=== PATIENT | female | born 1935 | race Caucasian/White ===

== ENCOUNTER 2017-02-13 09:40 | Day surgery (SDC) | payer MEDICARE, OTHER ==
[~2017-02-13] VITALS: Ht 165.1 cm; Wt 73.5 kg
[~2017-02-13 09:40] MED LIST: ADV250INH INH; ALBU17IN INH; ALLE60TA69 PO; ASPI1TAB PO; CALCTAB68 PO; EYECAP PO; FENO35TA PO; FISH306C PO; HAIR1TAB2 PO; LANS30CA PO; LOSA100T5 PO; LUTECAP2 PO; MILKSUS5 PO; OFLOXACIN 0.3 % (OCUFLOX) OPTH SOL 5ML OS ONE; PARO20TA3 PO; PERCOCET PO; PHENYLEPHRINE 2.5% OPHTH SOL 2ML OS ONE; PROL60SO SC; PROPARACAINE 0.5% OPHTH SOL 15ML OS ONE; SENO8.6T10 PO; SING10TA32 PO; TROPICAMIDE 1% OPHTH SOLN 2ML OS ONE; TYLE325T5 PO; VITA1CAP2 PO; VITA500046 PO; ZANT1TAB PO
[2017-02-13] MEDS ORDERED: LIDOCAINE 1% MDV 20ML VIAL SQ PRN (10:00)
[2017-02-13] MEDS ORDERED: LOSA100T5 PO (11:00)
[2017-02-13] MEDS ORDERED: BALANCED SALT IRRIGATION SOLUTION 500ML BAG (FOR OR EYE MACHINE) As Ordered ONE (11:22)
[2017-02-13] MEDS ORDERED: CEFUROXIME 1MG/0.1ML INTRACAMERAL INJ As Ordered ONE (11:22)
[2017-02-13] MEDS ORDERED: LIDOCAINE 0.75%/EPINEPHRINE 0.025% IN BSS 1ML SYR INTRACAMERAL (OR ONLY) As Ordered ONE (11:22)
[2017-02-13] MEDS ORDERED: POVIDONE-IODINE 5% OPHTH PREP SOL 30ML As Ordered ONE (11:22)
[2017-02-13] MEDS ORDERED: ACETYLCHOLINE OPHTH SOLN 1% 2ML (MIOCHOL-E) As Ordered ONE (11:22)
[2017-02-13] MEDS ORDERED: DUOVISC (0.50ML VISCOAT/0.55ML PROVISC) OPHTH KIT As Ordered ONE (11:22)
[2017-02-13] MEDS ORDERED: MIDAZOLAM INJ 2 MG/2 ML VIAL (J2250) As Ordered ONE (11:41)
[2017-02-13] MEDS ORDERED: fentaNYL 100 MCG/2 ML INJECTION (J3010) As Ordered ONE (11:42)
[2017-02-13 12:55] VITALS: BP 142/85
--- NOTE | 2017-02-15 10:42 | RO ---
DATE OF PROCEDURE: 02/13/2017 PREOPERATIVE DIAGNOSIS: Visually significant nuclear sclerotic cataract left eye. POSTOPERATIVE DIAGNOSIS: Visually significant nuclear sclerotic cataract left eye. PROCEDURE: Cataract extraction with use of phacoemulsification and placement of intraocular lens, AU00T0, 24.5, left eye. SURGEON: Adama Zapata DO HEEL PRICKER: ANESTHESIA: Local with monitored anesthesia care (MAC). COMPLICATIONS: None. POSTOPERATIVE CONDITION: Stable. INDICATION FOR SURGERY: Blurred vision left eye affecting patient's activities of daily living. DESCRIPTION OF PROCEDURE: The patient was seen in the preoperative area and properly identified. The correct operative eye was identified and marked. Attention was turned to that eye. The patient received topical antibiotics in the preoperative area. The patient then received topical dilating drops consisting of tropicamide and phenylephrine. The patient was then transferred to the operating room. The correct side was re-identified. The patient received topical anesthetics and antibiotics on the surface of the eye. The eye was prepped and draped in a sterile fashion. The upper and lower eyelids were isolated with Tegaderm tape, and the lids were held open with an adjustable speculum. Using a sideport blade, a paracentesis incision was made. Intraocular preservative-free lidocaine was then injected into the anterior chamber. Viscoelastic was then injected into the anterior chamber through the paracentesis. Using a 2.4 mm sharp-tipped keratome, the anterior chamber was entered via a temporal clear corneal incision. A continuous curvilinear capsulorrhexis was created with the aid of a 26-gauge cystotome and Utrata forceps. Hydrodissection was performed with balanced salt solution (BSS) on a blunt cannula until the nucleus was freely mobile. The crystalline lens was phacoemulsified and aspirated. Additional cohesive viscoelastic was placed into the capsular bag to deepen it. A AU00T0, 24.5 lens was placed into the capsular bag and confirmed by visualizing the continuous curvilinear capsulorrhexis. Additional irrigation and aspiration was used to remove cortical material and remaining viscoelastic. The clear corneal incision was hydrated with BSS on a blunt cannula. The lens was well positioned. The incisions were then tested for leaks and found to be negative. The eye was then palpated for appropriate pressure and adjusted accordingly with BSS. The eyelid speculum was carefully removed. A shield was placed. The patient tolerated the procedure well and was discharged to the recovery unit in a stable condition. MTDD
== END 2017-02-13 13:05 | disposition home or self-care (01) ==
LOC: M SDC 09:40
PROVIDERS: ATTEND Ophthalmology
DX: H25.12 Age-related nuclear cataract, left eye (principal); J45.909 Unspecified asthma, uncomplicated; Z79.82 Long term (current) use of aspirin; Z79.899 Other long term (current) drug therapy; Z79.51 Long term (current) use of inhaled steroids; Z87.891 Personal history of nicotine dependence
CPT/HCPCS: 66984; J2250; J3010; V2632

== ENCOUNTER 2017-03-06 06:32 | Day surgery (SDC) | payer MEDICARE, OTHER ==
[~2017-03-06] VITALS: Ht 167.6 cm; Wt 75.0 kg
[~2017-03-06 06:32] MED LIST changes: -OFLOXACIN 0.3 % (OCUFLOX) OPTH SOL 5ML OS ONE; -PHENYLEPHRINE 2.5% OPHTH SOL 2ML OS ONE; -PROPARACAINE 0.5% OPHTH SOL 15ML OS ONE; -TROPICAMIDE 1% OPHTH SOLN 2ML OS ONE
[2017-03-06] MEDS ORDERED: SLF 3 ML SYR IV PRN (06:45)
[2017-03-06] MEDS ORDERED: OFLOXACIN 0.3 % (OCUFLOX) OPTH SOL 5ML OD ONE (07:00)
[2017-03-06] MEDS ORDERED: PHENYLEPHRINE 2.5% OPHTH SOL 2ML OD ONE (07:00)
[2017-03-06] MEDS ORDERED: PROPARACAINE 0.5% OPHTH SOL 15ML OD ONE (07:00)
[2017-03-06] MEDS ORDERED: TROPICAMIDE 1% OPHTH SOLN 2ML OD ONE (07:00)
[2017-03-06] MEDS ORDERED: LIDOCAINE 3.5 % 1ML OPHTH TOPICAL GEL OU ONE (07:00)
[2017-03-06] MEDS ORDERED: POVIDONE-IODINE 5% OPHTH PREP SOL 30ML As Ordered ONE ×2 (07:35→08:25)
[2017-03-06] MEDS ORDERED: ACETYLCHOLINE OPHTH SOLN 1% 2ML (MIOCHOL-E) As Ordered ONE (07:35)
[2017-03-06] MEDS ORDERED: BALANCED SALT IRRIGATION SOLUTION 500ML BAG (FOR OR EYE MACHINE) As Ordered ONE (07:35)
[2017-03-06] MEDS ORDERED: DUOVISC (0.50ML VISCOAT/0.55ML PROVISC) OPHTH KIT As Ordered ONE (07:36)
[2017-03-06] MEDS ORDERED: LIDOCAINE 0.75%/EPINEPHRINE 0.025% IN BSS 1ML SYR INTRACAMERAL (OR ONLY) As Ordered ONE (07:36)
[2017-03-06] MEDS ORDERED: CEFUROXIME 1MG/0.1ML INTRACAMERAL INJ As Ordered ONE (07:36)
[2017-03-06] MEDS ORDERED: fentaNYL 100 MCG/2 ML INJECTION (J3010) As Ordered ONE (08:00)
[2017-03-06] MEDS ORDERED: MIDAZOLAM INJ 2 MG/2 ML VIAL (J2250) As Ordered ONE (08:00)
[2017-03-06 08:55] VITALS: BP 141/58
[2017-03-06] MEDS ORDERED: SLF 3 ML SYR IV SCH (14:00)
--- NOTE | 2017-03-07 13:13 | RO ---
DATE OF PROCEDURE: 03/06/2017 PREOPERATIVE DIAGNOSIS: Visually significant nuclear sclerotic cataract right eye. POSTOPERATIVE DIAGNOSIS: Visually significant nuclear sclerotic cataract right eye. PROCEDURE: Cataract extraction with use of phacoemulsification and placement of intraocular lens, AU00T0, 24.5 diopter, right eye. SURGEON: Adama Zapata DO URINALYSIS TECHNICIAN: ANESTHESIA: Local with monitored anesthesia care (MAC). COMPLICATIONS: None. POSTOPERATIVE CONDITION: Stable. INDICATION FOR SURGERY: Blurred vision right eye affecting patient's activities of daily living. DESCRIPTION OF PROCEDURE: The patient was seen in the preoperative area and properly identified. The correct operative eye was identified and marked. Attention was turned to that eye. The patient received topical antibiotics in the preoperative area. The patient then received topical dilating drops consisting of tropicamide and phenylephrine. The patient was then transferred to the operating room. The correct side was re-identified. The patient received topical anesthetics and antibiotics on the surface of the eye. The eye was prepped and draped in a sterile fashion. The upper and lower eyelids were isolated with Tegaderm tape, and the lids were held open with an adjustable speculum. Using a sideport blade, a paracentesis incision was made. Intraocular preservative-free lidocaine was then injected into the anterior chamber. Viscoelastic was then injected into the anterior chamber through the paracentesis. Using a 2.65 mm sharp-tipped keratome, the anterior chamber was entered via a temporal clear corneal incision. A continuous curvilinear capsulorrhexis was created with the aid of a 26-gauge cystotome and Utrata forceps. Hydrodissection was performed with balanced salt solution (BSS) on a blunt cannula until the nucleus was freely mobile. The crystalline lens was phacoemulsified and aspirated. Additional cohesive viscoelastic was placed into the capsular bag to deepen it. A AU00T0, 24.5 diopter lens was placed into the capsular bag and confirmed by visualizing the continuous curvilinear capsulorrhexis. Additional irrigation and aspiration was used to remove cortical material and remaining viscoelastic. The clear corneal incision was hydrated with BSS on a blunt cannula. The lens was well positioned. The incisions were then tested for leaks and found to be negative. The eye was then palpated for appropriate pressure and adjusted accordingly with BSS. The eyelid speculum was carefully removed. TobraDex ointment was placed in the eye. An eye patch and shield were then secured over the eye. The patient tolerated the procedure well and was discharged to the recovery unit in a stable condition.
== END 2017-03-06 09:00 | disposition home or self-care (01) ==
LOC: M SDC 06:32
PROVIDERS: ATTEND Ophthalmology
DX: H25.11 Age-related nuclear cataract, right eye (principal); I10 Essential (primary) hypertension; J45.20 Mild intermittent asthma, uncomplicated; K21.9 Gastro-esophageal reflux disease without esophagitis; M19.041 Primary osteoarthritis, right hand; M19.042 Primary osteoarthritis, left hand; K59.00 Constipation, unspecified; M81.0 Age-related osteoporosis without current pathological fracture; M54.9 Dorsalgia, unspecified; Z88.8 Allergy status to other drugs, medicaments and biological substances; Z88.1 Allergy status to other antibiotic agents; Z79.899 Other long term (current) drug therapy; Z79.82 Long term (current) use of aspirin; Z79.51 Long term (current) use of inhaled steroids
CPT/HCPCS: 66984; J2250; J3010; V2632

== ENCOUNTER → 2023-01-22 | Outpatient (REF) | payer MEDICARE, OTHER ==
[~2023-01-22] MED LIST changes: -ASPI1TAB PO; +ASPI81TA26 PO; +MONT-5 PO; -SING10TA32 PO; +VITA-183 PO; -VITA1CAP2 PO; +ZANT150T15 PO; -ZANT1TAB PO
== END ==
LOC: M LAB REF 15:14
PROVIDERS: ATTEND Internal Medicine Pulmonary Disease
DX: J47.9 Bronchiectasis, uncomplicated (principal)

== ENCOUNTER 2023-06-27 11:17 | Inpatient (IN) | payer MEDICARE, OTHER ==
[~2023-06-27] VITALS: Ht 160 cm; Wt 66.7 kg
[2023-06-27 18:30] VITALS: BP 119/57; TEMP 97.7; O2SAT 98
[2023-06-27] MEDS ORDERED: MIRALAX *UNIT DOSE* 17GM PACKET PO PRN (19:10)
[2023-06-27] MEDS ORDERED: APAP325T4 PO (20:11)
[2023-06-27] MEDS ORDERED: FURO20TA2 PO (20:16)
[2023-06-27] MEDS ORDERED: PREG25CA3 PO (20:16)
[2023-06-27] MEDS ORDERED: ELIQ5TAB PO (20:16)
[2023-06-27] MEDS ORDERED: DULO1CAP6 PO (20:16)
[2023-06-27] MEDS ORDERED: SYMB16INH INH (20:22)
[2023-06-27] MEDS ORDERED: AMOX875T2 PO (20:22)
[2023-06-27] MEDS ORDERED: FLON27.5 NARES (20:22)
[2023-06-27] MEDS ORDERED: PREG50CA PO (20:22)
[2023-06-27] MEDS ORDERED: ALBU2.5V10 INH (20:22)
[2023-06-27] MEDS ORDERED: DILT90TA PO (20:22)
[2023-06-27] MEDS ORDERED: HOME MED LIST COMPLETE! XX SCH (20:25)
[2023-06-27 20:48] VITALS: BP 128/64; TEMP 100; O2SAT 94
[2023-06-27] MEDS ORDERED: PREGABALIN 25 MG CAP (LYRICA) PO SCH (21:00)
[2023-06-27] MEDS: ALBUTEROL SULFATE 2.5MG/0.5ML INH NEB SOLN NEB SCH (21:42)
[2023-06-27] MEDS: SYMBICORT 160/4.5MCG INHALER 6GM INH SCH (21:43)
[2023-06-27] MEDS: FLUTICASONE PROP 0.05% NASAL SPRAY 16 GM (FLONASE) NARES SCH (22:16)
[2023-06-27] MEDS: AUGMENTIN 875 MG TAB PO SCH (22:16)
[2023-06-27] MEDS: APIXABAN 5 MG TAB (ELIQUIS) PO SCH (22:16)
[2023-06-28] MEDS ORDERED: ACETAMINOPHEN 325 MG TAB PO ONE
[2023-06-28 00:04] VITALS: BP 127/59; TEMP 100.5; O2SAT 95
[2023-06-28] MEDS: ACETAMINOPHEN TAB 650MG DOSE (2X325MG) PO PRN (00:31)
[2023-06-28] MEDS: dilTIAZem 30 MG TAB PO SCH (00:49)
[2023-06-28 01:58] LABS: BASO % 0.2 % (0.0-1.0); EOS # 0.3 10^3/uL (0.0-0.5); EOS % 2.6 % (0.0-3.0); HEMATOCRIT 26.1 % (36.0-47.0); HEMOGLOBIN 8.1 g/dl (12.0-15.5); LYMPH # 1.2 10^3/uL (1.5-5.0); LYMPH % 9.7 % (24.0-44.0); MEAN CORPUSCULAR HEMOGLOBIN 22.2 pg (27.0-33.0); MEAN CORPUSCULAR VOLUME 71.5 fl (80.0-96.0); MONO # 1.2 10^3/uL (0.0-0.8); MONO % 9.7 % (2.0-8.0); NEUTROPHILS # 9.6 10^3/uL (1.5-8.5); NEUTROPHILS % 76.5 % (36.0-66.0); PLATELET COUNT, AUTOMATED 360 10^3/uL (150-450); RED BLOOD COUNT 3.65 10^6/uL (4.00-5.40); WHITE BLOOD COUNT 12.5 10^3/uL (4.0-10.0)
[2023-06-28 02:21] LABS: MAGNESIUM LEVEL 1.7 MG/DL (1.8-2.4)
[2023-06-28 03:17] LABS: PROCALCITONIN 0.38 ng/ml
[2023-06-28 04:33] VITALS: BP 117/54; TEMP 99.5; O2SAT 95
[2023-06-28 06:22] LABS: HEMATOCRIT 26.8 % (36.0-47.0); HEMOGLOBIN 8.2 g/dl (12.0-15.5); MEAN CORPUSCULAR HEMOGLOBIN 21.9 pg (27.0-33.0); MEAN CORPUSCULAR HGB CONC 30.6 g/dl (32.0-36.5); MEAN CORPUSCULAR VOLUME 71.5 fl (80.0-96.0); PLATELET COUNT, AUTOMATED 315 10^3/uL (150-450); RED BLOOD COUNT 3.75 10^6/uL (4.00-5.40); WHITE BLOOD COUNT 11.6 10^3/uL (4.0-10.0)
[2023-06-28 06:51] LABS: CALCIUM LEVEL 8.5 MG/DL (8.3-10.6); CREATININE FOR GFR 1.32 MG/DL (0.55-1.30); GLOMERULAR FILTRATION RATE 40.5 (>32); POTASSIUM SERUM 3.9 MMOL/L (3.5-5.1)
[2023-06-28 08:14] LABS: HEMATOCRIT 27.2 % (36.0-47.0); HEMOGLOBIN 8.2 g/dl (12.0-15.5); MEAN CORPUSCULAR HEMOGLOBIN 21.5 pg (27.0-33.0); MEAN CORPUSCULAR HGB CONC 30.1 g/dl (32.0-36.5); MEAN CORPUSCULAR VOLUME 71.4 fl (80.0-96.0); PLATELET COUNT, AUTOMATED 349 10^3/uL (150-450); RED BLOOD COUNT 3.81 10^6/uL (4.00-5.40); WHITE BLOOD COUNT 11.5 10^3/uL (4.0-10.0)
[2023-06-28 08:26] LABS: INR 1.66; PROTHROMBIN TIME 19.1 SECONDS (12.5-14.5)
[2023-06-28 08:27] VITALS: BP 123/58; TEMP 98.3; O2SAT 89
[2023-06-28 08:48] LABS: ALBUMIN 2.2 G/DL (3.2-5.2); BILIRUBIN,DIRECT 0.2 MG/DL (<0.4); BILIRUBIN,TOTAL 0.4 MG/DL (0.3-1.2); TOTAL PROTEIN 5.4 G/DL (5.7-8.2)
[2023-06-28] MEDS ORDERED: DULoxetine 30MG CAPSULE (CYMBALTA) PO SCH (09:00)
[2023-06-28] MEDS: FUROSEMIDE 20 MG TAB PO SCH (10:03)
[2023-06-28] MEDS: PANTOPRAZOLE 40MG TAB (PROTONIX) PO SCH (10:03)
[2023-06-28] MEDS ORDERED: PIPERACILLIN/TAZOBACTAM SOD 3.375 GM in D5W MINI-BAG PLUS 50 ML IV SCH (12:00)
[2023-06-28 12:56] VITALS: BP 119/60; TEMP 98.4; O2SAT 90
[2023-06-28] MEDS: LEVALBUTEROL 1.25MG 0.5ML CONCENTRATE NEB INH SCH (12:59)
[2023-06-28] MEDS: PIPERACILLIN/TAZOBACTAM SOD 3.375 GM in D5W MINI-BAG PLUS 50 ML IV SCH (16:58)
[2023-06-28 17:08] VITALS: BP 121/64; TEMP 98.6; O2SAT 90
[2023-06-28] MEDS: MAGNESIUM OXIDE 400MG TAB (MAG-OX) PO ONE (18:47)
[2023-06-28 20:00] VITALS: BP 117/56; TEMP 98.4; O2SAT 97
[2023-06-28] MEDS: guaiFENesin ER TABLET 600 MG TAB PO SCH (20:44)
[2023-06-28] MEDS: PREGABALIN 25 MG CAP (LYRICA) PO SCH (20:44)
[2023-06-29] VITALS (8 sets, daily range): BP systolic 103–123; BP diastolic 53–72; TEMP 97.4–98.4; O2SAT 87–98
[2023-06-29] MEDS: LEVALBUTEROL 1.25MG 0.5ML CONCENTRATE NEB NEB PRN (02:12)
[2023-06-29 06:44] LABS: HEMATOCRIT 26.2 % (36.0-47.0); HEMOGLOBIN 7.9 g/dl (12.0-15.5); MEAN CORPUSCULAR HGB CONC 30.2 g/dl (32.0-36.5); PLATELET COUNT, AUTOMATED 320 10^3/uL (150-450); RED BLOOD COUNT 3.59 10^6/uL (4.00-5.40); WHITE BLOOD COUNT 12.1 10^3/uL (4.0-10.0)
[2023-06-29 07:10] LABS: ALBUMIN 2.1 G/DL (3.2-5.2); BILIRUBIN,TOTAL 0.5 MG/DL (0.3-1.2); CALCIUM LEVEL 8.6 MG/DL (8.3-10.6); CREATININE FOR GFR 1.46 MG/DL (0.55-1.30); GLOMERULAR FILTRATION RATE 36.1 (>32); POTASSIUM SERUM 4.2 MMOL/L (3.5-5.1); TOTAL PROTEIN 5.2 G/DL (5.7-8.2)
[2023-06-29] MEDS: DULoxetine 30MG CAPSULE (CYMBALTA) PO SCH (09:58)
[2023-06-29] MEDS: RAMELTEON 8 MG TAB (ROZEREM) PO PRN (20:17)
[2023-06-30 06:00] VITALS: BP 122/59; TEMP 97.2; O2SAT 93
[2023-06-30 07:20] LABS: HEMATOCRIT 26.3 % (36.0-47.0); HEMOGLOBIN 7.9 g/dl (12.0-15.5); MEAN CORPUSCULAR HEMOGLOBIN 21.8 pg (27.0-33.0); MEAN CORPUSCULAR VOLUME 72.7 fl (80.0-96.0); PLATELET COUNT, AUTOMATED 384 10^3/uL (150-450); RED BLOOD COUNT 3.62 10^6/uL (4.00-5.40); WHITE BLOOD COUNT 13.3 10^3/uL (4.0-10.0)
[2023-06-30 07:51] LABS: BILIRUBIN,TOTAL 0.4 MG/DL (0.3-1.2); CALCIUM LEVEL 8.4 MG/DL (8.3-10.6); CREATININE FOR GFR 1.34 MG/DL (0.55-1.30); GLOMERULAR FILTRATION RATE 39.8 (>32); POTASSIUM SERUM 4.3 MMOL/L (3.5-5.1); TOTAL PROTEIN 5.4 G/DL (5.7-8.2)
[2023-06-30 11:24] LABS: HEMATOCRIT 28.5 % (36.0-47.0); HEMOGLOBIN 8.5 g/dl (12.0-15.5); MEAN CORPUSCULAR HGB CONC 29.8 g/dl (32.0-36.5); MEAN CORPUSCULAR VOLUME 73.6 fl (80.0-96.0); PLATELET COUNT, AUTOMATED 401 10^3/uL (150-450); RED BLOOD COUNT 3.87 10^6/uL (4.00-5.40); WHITE BLOOD COUNT 13.2 10^3/uL (4.0-10.0)
[2023-06-30 11:51] LABS: CALCIUM LEVEL 8.8 MG/DL (8.3-10.6); CREATININE FOR GFR 1.42 MG/DL (0.55-1.30); GLOMERULAR FILTRATION RATE 37.3 (>32); MAGNESIUM LEVEL 1.5 MG/DL (1.8-2.4); POTASSIUM SERUM 3.8 MMOL/L (3.5-5.1)
[2023-06-30 14:00] VITALS: BP 122/54; TEMP 98.1; O2SAT 96
[2023-06-30] MEDS: MAG SULF 1GM/100ML (MAG RUN) 1 GM in IV 1 EA IV ONE (14:07)
[2023-06-30] MEDS: LACTOBACILLUS ACIDOPHILUS CAP (BACID) PO SCH (17:39)
[2023-06-30 20:00] VITALS: BP 119/90; TEMP 97.8; O2SAT 93
[2023-07-01 06:00] VITALS: BP 118/53; TEMP 98.6; O2SAT 95
[2023-07-01 07:44] LABS: HEMATOCRIT 26.9 % (36.0-47.0); HEMOGLOBIN 7.9 g/dl (12.0-15.5); MEAN CORPUSCULAR HEMOGLOBIN 21.8 pg (27.0-33.0); MEAN CORPUSCULAR HGB CONC 29.4 g/dl (32.0-36.5); MEAN CORPUSCULAR VOLUME 74.1 fl (80.0-96.0); PLATELET COUNT, AUTOMATED 452 10^3/uL (150-450); RED BLOOD COUNT 3.63 10^6/uL (4.00-5.40); WHITE BLOOD COUNT 15.7 10^3/uL (4.0-10.0)
[2023-07-01 08:10] LABS: PERCENT SATURATION 3.1 % (13.2-45.0)
[2023-07-01 08:22] LABS: ALBUMIN 2.1 G/DL (3.2-5.2); BILIRUBIN,TOTAL 0.4 MG/DL (0.3-1.2); CALCIUM LEVEL 8.2 MG/DL (8.3-10.6); CREATININE FOR GFR 1.37 MG/DL (0.55-1.30); FOLATE 10.67 NG/ML (>5.4); GLOMERULAR FILTRATION RATE 38.8 (>32); MAGNESIUM LEVEL 1.8 MG/DL (1.8-2.4); POTASSIUM SERUM 4.7 MMOL/L (3.5-5.1); TOTAL PROTEIN 5.5 G/DL (5.7-8.2)
[2023-07-01 14:00] VITALS: BP 138/66; TEMP 97.5; O2SAT 98
[2023-07-01] MEDS: FERROUS SULFATE 325MG TAB PO SCH (17:09)
[2023-07-01 20:00] VITALS: BP 128/69; TEMP 98.5; O2SAT 98
[2023-07-01] MEDS: DOXYCYCLINE HYCLATE 100MG TABLET PO SCH (20:32)
[2023-07-02 06:20] VITALS: BP 106/51; TEMP 97.8; O2SAT 94
[2023-07-02 07:27] LABS: HEMATOCRIT 26.5 % (36.0-47.0); HEMOGLOBIN 7.8 g/dl (12.0-15.5); MEAN CORPUSCULAR HEMOGLOBIN 21.6 pg (27.0-33.0); MEAN CORPUSCULAR HGB CONC 29.4 g/dl (32.0-36.5); MEAN CORPUSCULAR VOLUME 73.4 fl (80.0-96.0); PLATELET COUNT, AUTOMATED 490 10^3/uL (150-450); RED BLOOD COUNT 3.61 10^6/uL (4.00-5.40); WHITE BLOOD COUNT 12.3 10^3/uL (4.0-10.0)
[2023-07-02 07:57] LABS: ALBUMIN 2.2 G/DL (3.2-5.2); BILIRUBIN,TOTAL 0.4 MG/DL (0.3-1.2); CALCIUM LEVEL 8.9 MG/DL (8.3-10.6); CREATININE FOR GFR 1.35 MG/DL (0.55-1.30); GLOMERULAR FILTRATION RATE 39.5 (>32); MAGNESIUM LEVEL 1.5 MG/DL (1.8-2.4); POTASSIUM SERUM 4.4 MMOL/L (3.5-5.1); TOTAL PROTEIN 5.6 G/DL (5.7-8.2)
[2023-07-02] MEDS ORDERED: MEROPENEM INJ 1 GM in IV 1 EA IV SCH (08:15)
[2023-07-02 09:02] LABS: PROCALCITONIN 0.17 ng/ml
[2023-07-02] MEDS: MAG SULF 1GM/100ML (MAG RUN) 1 GM in IV 1 EA IV ONE (10:51)
[2023-07-02] MEDS: MEROPENEM INJ 1 GM in IV 1 EA IV SCH (12:19)
[2023-07-02 14:00] VITALS: BP 120/60; TEMP 97.3; O2SAT 95
[2023-07-02 20:01] VITALS: BP 125/62; TEMP 98.2; O2SAT 93
[2023-07-02] MEDS: BACTRIM 80MG/400MG TAB PO SCH (20:31)
[2023-07-02] MEDS ORDERED: BACTRIM 160MG/800MG DS TAB PO SCH (21:00)
[2023-07-02 23:54] VITALS: BP 123/58; O2SAT 94
[2023-07-03] VITALS (11 sets, daily range): BP systolic 116–155; BP diastolic 57–77; TEMP 96.9–99.4; O2SAT 90–100
[2023-07-03 06:51] LABS: HEMATOCRIT 23.6 % (36.0-47.0); HEMOGLOBIN 7.2 g/dl (12.0-15.5); MEAN CORPUSCULAR HEMOGLOBIN 22.2 pg (27.0-33.0); MEAN CORPUSCULAR HGB CONC 30.5 g/dl (32.0-36.5); MEAN CORPUSCULAR VOLUME 72.6 fl (80.0-96.0); PLATELET COUNT, AUTOMATED 535 10^3/uL (150-450); RED BLOOD COUNT 3.25 10^6/uL (4.00-5.40); WHITE BLOOD COUNT 12.2 10^3/uL (4.0-10.0)
[2023-07-03 07:17] LABS: CALCIUM LEVEL 8.9 MG/DL (8.3-10.6); CREATININE FOR GFR 1.18 MG/DL (0.55-1.30); GLOMERULAR FILTRATION RATE 46.1 (>32); MAGNESIUM LEVEL 1.7 MG/DL (1.8-2.4); POTASSIUM SERUM 3.8 MMOL/L (3.5-5.1)
[2023-07-03] MEDS: MAGNESIUM OXIDE 400MG TAB (MAG-OX) PO SCH (08:30)
[2023-07-03] MEDS: FUROSEMIDE 20MG/2ML VIAL IV ONE (19:11)
[2023-07-04 06:00] VITALS: BP 139/90; TEMP 99; O2SAT 95
[2023-07-04 06:45] LABS: MEAN CORPUSCULAR HEMOGLOBIN 22.9 pg (27.0-33.0); PLATELET COUNT, AUTOMATED 572 10^3/uL (150-450); RED BLOOD COUNT 4.19 10^6/uL (4.00-5.40)
[2023-07-04 07:04] LABS: HEMOGLOBIN 9.6 g/dl (12.0-15.5)
[2023-07-04 07:06] LABS: CALCIUM LEVEL 8.8 MG/DL (8.3-10.6); CREATININE FOR GFR 1.25 MG/DL (0.55-1.30); GLOMERULAR FILTRATION RATE 43.2 (>32); MAGNESIUM LEVEL 1.6 MG/DL (1.8-2.4)
[2023-07-04] MEDS: MAG SULF 1GM/100ML (MAG RUN) 1 GM in IV 1 EA IV ONE ×2 (10:17→13:08)
[2023-07-04] MEDS: MAGNESIUM OXIDE 400MG TAB (MAG-OX) PO SCH (13:07)
[2023-07-04 14:00] VITALS: BP 145/84; TEMP 98; O2SAT 96
[2023-07-04 17:00] LABS: HEMATOCRIT 30.4 % (36.0-47.0); HEMOGLOBIN 9.5 g/dl (12.0-15.5); MEAN CORPUSCULAR VOLUME 74.7 fl (80.0-96.0); RED BLOOD COUNT 4.07 10^6/uL (4.00-5.40); WHITE BLOOD COUNT 12.1 10^3/uL (4.0-10.0)
[2023-07-04 17:01] LABS: MEAN CORPUSCULAR HEMOGLOBIN 23.3 pg (27.0-33.0); MEAN CORPUSCULAR HGB CONC 31.3 g/dl (32.0-36.5); PLATELET COUNT, AUTOMATED 579 10^3/uL (150-450)
[2023-07-04 17:22] LABS: CALCIUM LEVEL 9.2 MG/DL (8.3-10.6); CREATININE FOR GFR 1.26 MG/DL (0.55-1.30); GLOMERULAR FILTRATION RATE 42.8 (>32); MAGNESIUM LEVEL 1.8 MG/DL (1.8-2.4); POTASSIUM SERUM 4.3 MMOL/L (3.5-5.1)
[2023-07-04 18:16] LABS: APPEARANCE, URINE MANUAL TURBID (CLEAR); COLOR, URINE MANUAL RED (YELLOW); SPECIFIC GRAVITY,URINE MANUAL 1.015 (1.002-1.035)
[2023-07-04 18:17] LABS: BILIRUBIN, URINE MANUAL OBSCURED (NEGATIVE); BLOOD URINE MANUAL POSITIVE (NEGATIVE); GLUCOSE, URINE (UA) MANUAL NEGATIVE (NEGATIVE); KETONE, URINE MANUAL OBSCURED mg/dL (NEGATIVE); LEUKOCYTE ESTERASE, URINE MAN POSITIVE (NEGATIVE); NITRITE, URINE MANUAL OBSCURED (NEGATIVE); PROTEIN, URINE MANUAL 3+ mg/dL (NEGATIVE); UROBILINOGEN, URINE MANUAL OBSCURED mg/dl (NORMAL)
[2023-07-04 18:50] LABS: RBC, URINE TNTC /hpf (0-3); WBC, URINE TNTC /hpf (0-3)
[2023-07-04 18:51] LABS: BACTERIA, URINE NONE SEEN; HYALINE CAST, URINE NONE SEEN /lpf (0-1); SQUAMOUS EPITHELIAL CELL URINE NONE SEEN /hpf (SMALL AMT)
[2023-07-04 20:00] VITALS: BP 154/69; TEMP 98.1; O2SAT 95
[2023-07-04] MEDS: QUEtiapine FUMARATE 12.5 MG HALF-TAB PO PRN (23:46)
[2023-07-05 06:00] VITALS: BP 135/65; TEMP 97.2; O2SAT 92
[2023-07-05 08:19] LABS: HEMOGLOBIN 9.2 g/dl (12.0-15.5); MEAN CORPUSCULAR HEMOGLOBIN 22.7 pg (27.0-33.0); MEAN CORPUSCULAR HGB CONC 30.7 g/dl (32.0-36.5); MEAN CORPUSCULAR VOLUME 74.1 fl (80.0-96.0); PLATELET COUNT, AUTOMATED 563 10^3/uL (150-450); RED BLOOD COUNT 4.05 10^6/uL (4.00-5.40); WHITE BLOOD COUNT 10.9 10^3/uL (4.0-10.0)
[2023-07-05 14:00] VITALS: BP 123/58; TEMP 97; O2SAT 94
[2023-07-05 20:03] VITALS: BP 130/79; TEMP 97.8; O2SAT 92
[2023-07-06 05:32] VITALS: BP 128/59; TEMP 97.7; O2SAT 92
[2023-07-06 07:16] LABS: HEMATOCRIT 29.8 % (36.0-47.0); HEMOGLOBIN 9.3 g/dl (12.0-15.5)
[2023-07-06 14:00] VITALS: BP 130/80; TEMP 98.1; O2SAT 93
[2023-07-06 19:06] VITALS: BP 151/65; TEMP 97; O2SAT 94
[2023-07-07 05:04] VITALS: BP 141/63; TEMP 97.6; O2SAT 91
[2023-07-07 06:48] LABS: HEMATOCRIT 29.1 % (36.0-47.0); HEMOGLOBIN 8.9 g/dl (12.0-15.5); MEAN CORPUSCULAR HEMOGLOBIN 22.8 pg (27.0-33.0); MEAN CORPUSCULAR HGB CONC 30.6 g/dl (32.0-36.5); MEAN CORPUSCULAR VOLUME 74.4 fl (80.0-96.0); PLATELET COUNT, AUTOMATED 569 10^3/uL (150-450); RED BLOOD COUNT 3.91 10^6/uL (4.00-5.40); WHITE BLOOD COUNT 9.1 10^3/uL (4.0-10.0)
[2023-07-07 06:56] LABS: CALCIUM LEVEL 9.1 MG/DL (8.3-10.6); CREATININE FOR GFR 1.5 MG/DL (0.55-1.30); MAGNESIUM LEVEL 1.8 MG/DL (1.8-2.4); POTASSIUM SERUM 4.9 MMOL/L (3.5-5.1)
[2023-07-07 14:00] VITALS: BP 129/57; TEMP 97.9; O2SAT 98
[2023-07-07 19:33] VITALS: BP 142/67; TEMP 98.1; O2SAT 97
[2023-07-08 06:00] VITALS: BP 144/56; TEMP 98.4; O2SAT 89
[2023-07-08 07:08] LABS: HEMATOCRIT 28.9 % (36.0-47.0); HEMOGLOBIN 8.9 g/dl (12.0-15.5); MEAN CORPUSCULAR HEMOGLOBIN 22.9 pg (27.0-33.0); MEAN CORPUSCULAR HGB CONC 30.8 g/dl (32.0-36.5); MEAN CORPUSCULAR VOLUME 74.5 fl (80.0-96.0); PLATELET COUNT, AUTOMATED 533 10^3/uL (150-450); RED BLOOD COUNT 3.88 10^6/uL (4.00-5.40); WHITE BLOOD COUNT 8.7 10^3/uL (4.0-10.0)
[2023-07-08 07:25] LABS: CALCIUM LEVEL 9.1 MG/DL (8.3-10.6); CREATININE FOR GFR 1.28 MG/DL (0.55-1.30); MAGNESIUM LEVEL 1.8 MG/DL (1.8-2.4); POTASSIUM SERUM 4.9 MMOL/L (3.5-5.1)
[2023-07-08] MEDS: APIXABAN 5 MG TAB (ELIQUIS) PO SCH (09:25)
[2023-07-08 14:12] VITALS: BP 147/59; TEMP 97.4; O2SAT 90
[2023-07-08 20:00] VITALS: BP 127/59; TEMP 99.2; O2SAT 91
[2023-07-09 06:00] VITALS: BP 135/65; TEMP 98; O2SAT 90
[2023-07-09 07:35] LABS: HEMATOCRIT 31.4 % (36.0-47.0); HEMOGLOBIN 9.6 g/dl (12.0-15.5); MEAN CORPUSCULAR HEMOGLOBIN 23.1 pg (27.0-33.0); MEAN CORPUSCULAR HGB CONC 30.6 g/dl (32.0-36.5); MEAN CORPUSCULAR VOLUME 75.5 fl (80.0-96.0); PLATELET COUNT, AUTOMATED 569 10^3/uL (150-450); RED BLOOD COUNT 4.16 10^6/uL (4.00-5.40); WHITE BLOOD COUNT 9.9 10^3/uL (4.0-10.0)
[2023-07-09 08:02] LABS: CALCIUM LEVEL 9.6 MG/DL (8.3-10.6); CREATININE FOR GFR 1.25 MG/DL (0.55-1.30); GLOMERULAR FILTRATION RATE 43.2 (>32); MAGNESIUM LEVEL 1.9 MG/DL (1.8-2.4); POTASSIUM SERUM 4.9 MMOL/L (3.5-5.1)
[2023-07-09] MEDS ORDERED: LANS30CA PO (11:26)
[2023-07-09] MEDS ORDERED: DILT360C7 PO (11:26)
[2023-07-09] MEDS ORDERED: MAGN400T2 PO (11:26)
[2023-07-09] MEDS ORDERED: FERR1TAB8 PO (11:26)
[2023-07-09] MEDS ORDERED: DULO30CA9 PO (11:26)
[2023-07-09] MEDS ORDERED: LEVA1.25 NEB (11:26)
[2023-07-09 12:11] VITALS: BP 137/66
== END 2023-07-09 13:30 | disposition home health service (06) | DRG 947 ==
LOC: M PM&R 18:20
PROVIDERS: ADMIT Student in an Organized Health Care Education/Training Program; ATTEND Student in an Organized Health Care Education/Training Program
DX: R53.81 Other malaise (principal); J18.9 Pneumonia, unspecified organism; J69.0 Pneumonitis due to inhalation of food and vomit; J96.11 Chronic respiratory failure with hypoxia; C68.0 Malignant neoplasm of urethra; N17.9 Acute kidney failure, unspecified; N39.0 Urinary tract infection, site not specified; J90 Pleural effusion, not elsewhere classified; I50.9 Heart failure, unspecified; I11.0 Hypertensive heart disease with heart failure; E78.5 Hyperlipidemia, unspecified; F41.9 Anxiety disorder, unspecified; K21.9 Gastro-esophageal reflux disease without esophagitis; J43.9 Emphysema, unspecified; M19.90 Unspecified osteoarthritis, unspecified site; R41.89 Other symptoms and signs involving cognitive functions and awareness; R41.0 Disorientation, unspecified; M81.0 Age-related osteoporosis without current pathological fracture; H91.93 Unspecified hearing loss, bilateral; I48.0 Paroxysmal atrial fibrillation; Z74.09 Other reduced mobility; Z74.1 Need for assistance with personal care; Z99.81 Dependence on supplemental oxygen; Z98.1 Arthrodesis status; Z87.891 Personal history of nicotine dependence; G89.29 Other chronic pain; Z79.01 Long term (current) use of anticoagulants; Z79.899 Other long term (current) drug therapy; Z96.0 Presence of urogenital implants; E83.42 Hypomagnesemia; Y95 Nosocomial condition; B96.20 Unspecified Escherichia coli [E. coli] as the cause of diseases classified elsewhere; D50.9 Iron deficiency anemia, unspecified; D75.838 Other thrombocytosis; N39.46 Mixed incontinence; R15.9 Full incontinence of feces; R31.9 Hematuria, unspecified

== ENCOUNTER 2023-07-19 10:58 | Inpatient (IN) | payer OTHER, MEDICARE ==
[~2023-07-19] VITALS: Ht 162.6 cm; Wt 63.3 kg
[~2023-07-19 10:58] MED LIST changes: +ALBU2.5V10 INH; +AMOX875T2 PO; +APAP325T4 PO; +DILT360C7 PO; +DILT90TA PO; +DULO1CAP6 PO; +DULO30CA9 PO; +ELIQ5TAB PO; +FERR1TAB8 PO; +FLON27.5 NARES; +FURO20TA2 PO; +LEVA1.25 NEB; +MAGN400T2 PO; +PREG25CA3 PO; +PREG50CA PO; +SYMB16INH INH
[2023-07-19] MEDS ORDERED: PRED20TA PO ×2 (11:12→14:36)
[2023-07-19] MEDS ORDERED: LEVO1TAB39 PO (11:12)
[2023-07-19 11:41] LABS: BASO % 0.2 % (0.0-1.0); HEMATOCRIT 37.1 % (36.0-47.0); HEMOGLOBIN 11.2 g/dl (12.0-15.5); LYMPH # 1.2 10^3/uL (1.5-5.0); LYMPH % 10.5 % (24.0-44.0); MEAN CORPUSCULAR HEMOGLOBIN 22.7 pg (27.0-33.0); MEAN CORPUSCULAR HGB CONC 30.2 g/dl (32.0-36.5); MEAN CORPUSCULAR VOLUME 75.3 fl (80.0-96.0); MONO # 0.8 10^3/uL (0.0-0.8); MONO % 6.5 % (2.0-8.0); NEUTROPHILS # 9.3 10^3/uL (1.5-8.5); NEUTROPHILS % 81.4 % (36.0-66.0); PLATELET COUNT, AUTOMATED 450 10^3/uL (150-450); RED BLOOD COUNT 4.93 10^6/uL (4.00-5.40); WHITE BLOOD COUNT 11.5 10^3/uL (4.0-10.0)
[2023-07-19 11:53] LABS: INR 1.29; PARTIAL THROMBOPLASTIN TIME 27.1 SECONDS (24.8-34.2); PROTHROMBIN TIME 15.6 SECONDS (12.5-14.5)
[2023-07-19 12:04] LABS: CK-MB VALUE MASS < 1.0 NG/ML (<3.6)
[2023-07-19 12:07] LABS: ALBUMIN 2.5 G/DL (3.2-5.2); ALKALINE PHOSPHATASE 76 U/L (46-116); ALT/SGPT 41 U/L (7.0-40); AST/SGOT 29 U/L (<34); BILIRUBIN,DIRECT < 0.1 MG/DL (<0.4); BILIRUBIN,TOTAL 0.3 MG/DL (0.3-1.2); BLOOD UREA NITROGEN 35 MG/DL (9-23); CALCIUM LEVEL 9.4 MG/DL (8.3-10.6); CARBON DIOXIDE LEVEL 28 MMOL/L (20-31); CHLORIDE LEVEL 108 MMOL/L (98-107); CREATININE FOR GFR 1.15 MG/DL (0.55-1.30); GLOMERULAR FILTRATION RATE 47.5 (>32); GLUCOSE, FASTING 86 MG/DL (74-106); POTASSIUM SERUM 4.6 MMOL/L (3.5-5.1); SODIUM LEVEL 144 MMOL/L (136-145); TOTAL PROTEIN 6.8 G/DL (5.7-8.2)
[2023-07-19 12:09] LABS: FREE T4 1.01 NG/DL (0.89-1.76); THYROID STIMULATING HORMONE 4.499 uIU/ML (0.55-4.78)
[2023-07-19 12:18] LABS: CPK CREATINE PHOSPHOKINASE 22 U/L (34-145); MB/CK RELATIVE INDEX 4.54 (< OR =4)
[2023-07-19] MEDS ORDERED: ISOVUE-370 76% 100ML VIAL As Ordered ONE (13:09)
[2023-07-19] MEDS: IPRATROPIUM 0.5MG/ALBUTEROL 2.5MG INH SOL UD 3ML (DUONEB) NEB ONE ×2 (13:12→16:41)
[2023-07-19] MEDS: dilTIAZem 25MG/5ML VIAL IV STA ×2 (13:21→16:13)
[2023-07-19] MEDS ORDERED: PREG25CA PO (14:36)
[2023-07-19] MEDS ORDERED: DULO30CA9 PO (14:36)
[2023-07-19] MEDS ORDERED: DILT360C8 PO (14:36)
[2023-07-19] MEDS ORDERED: PROL60SO SC (14:43)
[2023-07-19] MEDS ORDERED: LEVA1.2525 INH (14:43)
[2023-07-19] MEDS ORDERED: BUDE0.5S6 INH (14:48)
[2023-07-19] MEDS ORDERED: FORM20VI2 INH (14:48)
[2023-07-19] MEDS ORDERED: HOME MED LIST COMPLETE! XX SCH (14:55)
[2023-07-19] MEDS ORDERED: OCUV1CAP4 PO (14:58)
[2023-07-19] MEDS: PIPERACILLIN/TAZOBACTAM SOD 4.5 GM in D5W MINI-BAG PLUS 50 ML IV ONE (15:12)
[2023-07-19] MEDS: VANCOMYCIN HCL 1,000 MG, VIAL MATE ADAPTER 1 EACH in D5W 250 ML IV ONE (16:12)
[2023-07-19] MEDS: DIGOXIN INJ 0.5 MG/2 ML AMP IV ONE ×2 (16:56→23:02)
[2023-07-19] MEDS: methylPREDNISolone 125MG 2ML VIAL IV ONE (16:56)
[2023-07-19 19:00] LABS: PROCALCITONIN 0.12 ng/ml
[2023-07-19] MEDS: METOPROLOL TART 12.5 MG PER 1/2 TAB PO SCH (19:22)
[2023-07-19] MEDS: dilTIAZem **CD** 180MG CAP PO SCH (19:24)
[2023-07-19 19:50] VITALS: BP 129/66; TEMP 98.1; O2SAT 92
[2023-07-19] MEDS: LEVALBUTEROL 1.25MG 0.5ML CONCENTRATE NEB INH SCH (20:24)
[2023-07-19] MEDS: BUDESONIDE 0.5 MG/2 ML INHALATION SUSPENSION NEB SCH (20:24)
[2023-07-19] MEDS: FORMOTEROL FUMARATE 20 MCG/2 ML INHALATION SOLUTION (PERFOROMIST) INH SCH (20:24)
[2023-07-19] MEDS: SODIUM CHLORIDE HYPERTONIC 3% 4ML NEB SOL INH SCH (20:24)
[2023-07-19] MEDS: PIPERACILLIN/TAZOBACTAM SOD 3.375 GM in D5W MINI-BAG PLUS 50 ML IV SCH (20:38)
[2023-07-19] MEDS: APIXABAN 5 MG TAB (ELIQUIS) PO SCH (20:39)
[2023-07-19] MEDS: PANTOPRAZOLE 40MG TAB (PROTONIX) PO SCH (20:39)
[2023-07-19] MEDS: PREGABALIN 50 MG CAP (LYRICA) PO SCH (20:39)
[2023-07-19] MEDS ORDERED: methylPREDNISolone 40MG 1ML VIAL IV SCH (23:00)
[2023-07-19 23:10] VITALS: BP 136/63; TEMP 97; O2SAT 92
[2023-07-20 03:43] VITALS: BP 134/70; TEMP 97.3; O2SAT 93
[2023-07-20 04:24] LABS: BASO % 0.1 % (0.0-1.0); HEMATOCRIT 34.2 % (36.0-47.0); HEMOGLOBIN 10.6 g/dl (12.0-15.5); LYMPH # 0.9 10^3/uL (1.5-5.0); LYMPH % 13.3 % (24.0-44.0); MEAN CORPUSCULAR HEMOGLOBIN 22.9 pg (27.0-33.0); MONO # 0.1 10^3/uL (0.0-0.8); MONO % 1.3 % (2.0-8.0); NEUTROPHILS # 5.6 10^3/uL (1.5-8.5); NEUTROPHILS % 83.5 % (36.0-66.0); PLATELET COUNT, AUTOMATED 369 10^3/uL (150-450); RED BLOOD COUNT 4.62 10^6/uL (4.00-5.40); WHITE BLOOD COUNT 6.8 10^3/uL (4.0-10.0)
[2023-07-20 04:42] LABS: CREATININE FOR GFR 1.1 MG/DL (0.55-1.30); POTASSIUM SERUM 4.5 MMOL/L (3.5-5.1)
[2023-07-20] MEDS: methylPREDNISolone 40MG 1ML VIAL IV SCH ×2 (06:11→17:23)
[2023-07-20 08:00] VITALS: BP 136/66; TEMP 97; O2SAT 95
[2023-07-20] MEDS: PREGABALIN 25 MG CAP (LYRICA) PO SCH (08:58)
[2023-07-20] MEDS: NYSTATIN 100,000 UNITS/GM TOPICAL PWD 15GM TOP SCH (12:05)
[2023-07-20 12:37] VITALS: BP 124/60; TEMP 97.6; O2SAT 94
[2023-07-20 16:00] VITALS: BP 125/56; TEMP 97.6; O2SAT 93
[2023-07-20] MEDS: CALCIUM CARBONATE 500 MG CHEW U/D PO PRN (16:08)
[2023-07-20 19:00] VITALS: BP 145/65; TEMP 98; O2SAT 94
[2023-07-21 00:10] VITALS: BP 120/66; TEMP 97.9; O2SAT 96
[2023-07-21 03:20] VITALS: BP 123/72; TEMP 97.3; O2SAT 95
[2023-07-21 05:34] LABS: HEMATOCRIT 31.2 % (36.0-47.0); HEMOGLOBIN 9.4 g/dl (12.0-15.5); LYMPH # 0.8 10^3/uL (1.5-5.0); LYMPH % 11.9 % (24.0-44.0); MEAN CORPUSCULAR HEMOGLOBIN 22.5 pg (27.0-33.0); MEAN CORPUSCULAR HGB CONC 30.1 g/dl (32.0-36.5); MEAN CORPUSCULAR VOLUME 74.6 fl (80.0-96.0); MONO # 0.2 10^3/uL (0.0-0.8); MONO % 3.6 % (2.0-8.0); NEUTROPHILS # 5.6 10^3/uL (1.5-8.5); NEUTROPHILS % 83.5 % (36.0-66.0); PLATELET COUNT, AUTOMATED 293 10^3/uL (150-450); RED BLOOD COUNT 4.18 10^6/uL (4.00-5.40); WHITE BLOOD COUNT 6.8 10^3/uL (4.0-10.0)
[2023-07-21 05:57] LABS: CALCIUM LEVEL 8.6 MG/DL (8.3-10.6); CREATININE FOR GFR 1.25 MG/DL (0.55-1.30); GLOMERULAR FILTRATION RATE 43.2 (>32); POTASSIUM SERUM 4.2 MMOL/L (3.5-5.1)
[2023-07-21 07:18] VITALS: BP 134/63; TEMP 97.3; O2SAT 98
[2023-07-21 15:35] VITALS: BP 127/60; TEMP 97.6; O2SAT 97
[2023-07-21 16:00] VITALS: BP 136/69; TEMP 97.2; O2SAT 97
[2023-07-21] MEDS: PREVNAR-20 VACCINE 0.5ML SYRINGE IM.IMMUN ONE (18:38)
[2023-07-21 19:24] VITALS: BP 125/59; TEMP 97.7; O2SAT 96
[2023-07-22 04:00] VITALS: BP 135/68; TEMP 96.8; O2SAT 92
[2023-07-22 05:40] LABS: BASO % 0.1 % (0.0-1.0); HEMATOCRIT 30.3 % (36.0-47.0); HEMOGLOBIN 9.1 g/dl (12.0-15.5); LYMPH # 0.9 10^3/uL (1.5-5.0); LYMPH % 10.6 % (24.0-44.0); MEAN CORPUSCULAR HEMOGLOBIN 22.6 pg (27.0-33.0); MEAN CORPUSCULAR VOLUME 75.2 fl (80.0-96.0); MONO # 0.2 10^3/uL (0.0-0.8); NEUTROPHILS # 7.2 10^3/uL (1.5-8.5); NEUTROPHILS % 85.5 % (36.0-66.0); PLATELET COUNT, AUTOMATED 291 10^3/uL (150-450); RED BLOOD COUNT 4.03 10^6/uL (4.00-5.40); WHITE BLOOD COUNT 8.4 10^3/uL (4.0-10.0)
[2023-07-22 06:28] LABS: CALCIUM LEVEL 8.7 MG/DL (8.3-10.6); CREATININE FOR GFR 1.1 MG/DL (0.55-1.30); POTASSIUM SERUM 3.9 MMOL/L (3.5-5.1)
[2023-07-22 09:29] VITALS: BP 135/68
[2023-07-22] MEDS ORDERED: PRED10TA2 PO (10:27)
[2023-07-22] MEDS ORDERED: AMOX875T2 PO (10:27)
[2023-07-22] MEDS: predniSONE 20 MG TAB PO ONE (12:08)
== END 2023-07-22 13:12 | disposition home or self-care (01) | DRG 193 ==
LOC: M ED 10:58 → M ED INP 17:22 → M PCU 19:45
PROVIDERS: ADMIT Internal Medicine Nephrology; ATTEND Internal Medicine Nephrology
DX: J12.3 Human metapneumovirus pneumonia (principal); J96.21 Acute and chronic respiratory failure with hypoxia; I48.20 Chronic atrial fibrillation, unspecified; J44.0 Chronic obstructive pulmonary disease with (acute) lower respiratory infection; J44.1 Chronic obstructive pulmonary disease with (acute) exacerbation; J47.1 Bronchiectasis with (acute) exacerbation; I10 Essential (primary) hypertension; E78.5 Hyperlipidemia, unspecified; F41.9 Anxiety disorder, unspecified; M19.90 Unspecified osteoarthritis, unspecified site; M81.0 Age-related osteoporosis without current pathological fracture; K21.9 Gastro-esophageal reflux disease without esophagitis; J84.10 Pulmonary fibrosis, unspecified; Z79.01 Long term (current) use of anticoagulants; Z79.52 Long term (current) use of systemic steroids; Z79.899 Other long term (current) drug therapy; Z90.79 Acquired absence of other genital organ(s); Z99.81 Dependence on supplemental oxygen; Z87.891 Personal history of nicotine dependence; N13.9 Obstructive and reflux uropathy, unspecified